=== PATIENT | male | born 1955 | race Caucasian/White ===

== ENCOUNTER 2023-12-09 11:47 | Emergency (ER) | payer MEDICARE, BC ==
[~2023-12-09] VITALS: Ht 182.9 cm; Wt 90.9 kg
[2023-12-09 12:02] VITALS: TEMP 98.2
[2023-12-09] MEDS ORDERED: NS 1,000 ML IV ONE (12:45)
[2023-12-09] MEDS ORDERED: Meclizine 25 MG TAB PO ONE (12:45)
[2023-12-09 12:51] LABS: BASO % 0.6 % (0.0-2.0); GRAN # 3.2 K/mm3 (1.4-6.5); GRAN % 48.8 % (42.2-75.2); HEMATOCRIT 43.3 % (42.0-52.0); HEMOGLOBIN 15.2 g/dl (13.5-18.0); LYMPH # 2.6 K/mm3 (1.2-3.4); LYMPH % 39.8 % (20.0-51.0); MEAN CELL VOLUME 91 fl (80.0-100.0); MEAN CORPUSCULAR HEMOGLOBIN 32 pg (27-31); MEAN CORPUSCULAR HGB CONC 35 g/dl (33.0-37.0); MEAN PLATELET VOLUME 9.9 fl (7.4-10.4); MONO # 0.7 K/mm3 (0.1-0.6); MONO % 10.5 % (1.7-9.3); PLATELET COUNT 265 K/mm3 (130-400); RED BLOOD COUNT 4.74 M/mm3 (4.20-5.60)
[2023-12-09 13:22] LABS: ALANINE AMINOTRANSFERASE 27 U/L (0-55); ALBUMIN 4.4 g/dL (3.4-4.8); ALKALINE PHOSPHATASE 82 U/L (40-150); ANION GAP 11 mmol/L (7-16); AST,SGOT 25 U/L (5-34); BILIRUBIN,TOTAL 0.6 mg/dL (0.2-1.2); BLOOD UREA NITROGEN 16 mg/dL (8-26); CALCIUM 9.3 mg/dL (8.4-10.2); CHLORIDE 108 mEq/L (98-107); CREATININE, serum 0.84 mg/dL (0.72-1.25); GLUCOSE 86 mg/dL (70-99); POTASSIUM 3.9 mEq/L (3.5-4.5); SODIUM 140 mEq/L (136-145); TOTAL PROTEIN 7.4 g/dl (6.2-8.1)
[2023-12-09 13:36] LABS: TROPONIN-I < 0.010 ng/mL (0.00-0.033)
[2023-12-09] MEDS ORDERED: ANTIVERT 25MG25 MG PO (14:56)
[2023-12-09] MEDS ORDERED: ZOFRAN ODT4 MG PO (14:56)
[2023-12-09 14:59] VITALS: BP 172/80; PULSE 67
== END 2023-12-09 15:10 | disposition home or self-care (01) ==
LOC: COL.ER 11:47
PROVIDERS: Emergency Medicine
DX: R42 Dizziness and giddiness (principal); R11.0 Nausea
CPT/HCPCS: J7030